=== PATIENT | male | born 1935 | race Caucasian/White ===

== ENCOUNTER 2019-01-29 14:01 | Observation (INO) | payer MEDICARE, OTHER ==
[~2019-01-29] VITALS: Ht 170.2 cm; Wt 66.0 kg
[~2019-01-29 14:01] MED LIST: ASPI81TA94
[2019-01-29] MEDS ORDERED: aspirin 81mg tab.chew PO ONE (14:10)
[2019-01-29] MEDS: nitroGLYCERIN 0.4mg SUBLingual tab SL PRN ×2 (14:36→14:43)
[2019-01-29 14:37] LABS: BASOPHILS % (AUTO) 0.1 % (0-1); EOSINOPHILS % (AUTO) 0 % (0-6); HEMATOCRIT 41.6 % (42.0-52.0); HEMOGLOBIN 14.5 g/dl (14.0-17.9); LYMPHOCYTES # (AUTO) 0.5 X10'3 (1.1-4.8); LYMPHOCYTES % (AUTO) 4.6 % (21-51); MEAN CORPUSCULAR HEMOGLOBIN 33.5 PG (27.0-31.0); MEAN CORPUSCULAR HGB CONC 34.9 g/dL (33.0-36.5); MEAN CORPUSCULAR VOLUME 96.1 FL (78-98); MEAN PLATELET VOLUME 7.4 FL (7.4-10.4); MONOCYTES # (AUTO) 0.5 X10'3 (0-0.9); MONOCYTES % (AUTO) 4.6 % (2-12); NEUTROPHILS # (AUTO) 8.9 X10'3 (1.8-7.7); NEUTROPHILS % (AUTO) 90.7 % (42-75); PLATELET COUNT 162 X10'3 (140-440); RED BLOOD COUNT 4.33 X10'6 (4.70-6.10); RED CELL DISTRIBUTION WIDTH 13.1 % (11.5-14.5); WHITE BLOOD COUNT 9.8 X10'3 (4.5-11.0)
--- NOTE | 2019-01-29 14:38 | NUR ---
C/P 8\10, B/P 171/103 FIRST NITRO
--- NOTE | 2019-01-29 14:41 | NUR ---
C/P 11/04
--- NOTE | 2019-01-29 14:42 | NUR ---
B/P 150/90 CP 5/10 SECOND NITRO ADM
[2019-01-29 14:46] LABS: ALANINE AMINOTRANSFERASE 27 U/L (12-78); ALKALINE PHOSPHATASE 117 IU/L (46-116); ANION GAP 11 (8-16); ASPARTATE AMINO TRANSFERASE 18 U/L (10-37); BILIRUBIN,TOTAL 1.4 MG/DL (0.1-1.0); BLOOD UREA NITROGEN 20 MG/DL (7-18); BUN/CREATININE RATIO 20.4 (5.4-32.0); CHLORIDE 106 MMOL/L (99-107); CREATININE 0.98 MG/DL (0.60-1.10); GLUCOSE 124 MG/DL (70-104); POTASSIUM 3.6 MMOL/L (3.5-5.1); SODIUM 143 MMOL/L (135-145); TOTAL CARBON DIOXIDE 26.4 MMOL/L (24-32); TOTAL PROTEIN 8.2 G/DL (6.4-8.2); eGFR 73 ML/MIN
--- NOTE | 2019-01-29 14:47 | NUR ---
PAIN 11/04 B/P 102/72 PULSE4 106 Addendum: 01/29/19 at 1448 by GUI MD MONTES NON
[2019-01-29] MEDS ORDERED: ondansetron/PF 4mg/2ml inj IV ONE (14:50)
[2019-01-29] MEDS ORDERED: fentaNYL/PF 50MCG/1 ML 2ML syringe IV ONE (14:50)
[2019-01-29 14:53] LABS: MAGNESIUM 1.9 MG/DL (1.5-2.4)
--- NOTE | 2019-01-29 14:58 | NUR ---
PAIN 2/10-CP B/P 142/90 PULSEN 94
[2019-01-29] MEDS ORDERED: regadenoson 0.4mg/5ml syringe IV PRN (15:05)
[2019-01-29] MEDS ORDERED: potassium CL 10mEq/100ml bag 100 ML IV PRN ×2 (15:05)
[2019-01-29] MEDS ORDERED: morphine 2 MG/ML inj. syringe IV PRN ×2 (15:05)
[2019-01-29] MEDS ORDERED: HYDROcodone/acetaminophen 5mg/325mg tablet PO PRN (15:05)
[2019-01-29] MEDS ORDERED: potassium Cl 20 mEq SR tablet PO PRN ×2 (15:05)
[2019-01-29] MEDS ORDERED: nitroGLYCERIN 0.4mg SUBLingual tab SL PRN (15:05)
[2019-01-29] MEDS ORDERED: ondansetron/PF 4mg/2ml inj IV PRN (15:05)
[2019-01-29] MEDS ORDERED: magnesium hydroxide 30ml (MOM) UD suspension PO PRN (15:05)
[2019-01-29] MEDS ORDERED: aminophylline 250mg/10ml inj. IV PRN (15:05)
[2019-01-29] MEDS ORDERED: magnesium Cl slow-release 64mg tablet PO PRN (15:05)
[2019-01-29] MEDS ORDERED: HYDROcodone/acetaminophen 10/325mg tab PO PRN (15:05)
[2019-01-29] MEDS ORDERED: acetaminophen 325mg tablet PO PRN ×2 (15:05)
[2019-01-29] MEDS ORDERED: magnesium 4gm in 100ml NS 100 ML IV PRN (15:05)
[2019-01-29] MEDS ORDERED: mag hydrox/Alum hydrox/simeth 30ml oral suspension PO PRN (15:05)
[2019-01-29] MEDS ORDERED: metoprolol tartrate 1mg/ml inj IV PRN (15:05)
[2019-01-29] MEDS ORDERED: magnesium 2GM in 50ml NS 50 ML IV PRN (15:05)
[2019-01-29] MEDS ORDERED: MELO15TA13 PO (15:21)
[2019-01-29] MEDS ORDERED: ACET-3068 PO (15:21)
[2019-01-29] MEDS ORDERED: FLO0.4C PO (15:21)
[2019-01-29] MEDS ORDERED: MELO-102 PO (15:21)
[2019-01-29] MEDS ORDERED: LYR75C PO (15:21)
--- NOTE | 2019-01-29 15:33 | NUR ---
Patient in room MED 311. I have received report from Graciela Be RN and had the opportunity to ask questions and assume patient care.
--- NOTE | 2019-01-29 15:37 | NUR ---
Pt arrived to unit via gurney. child monitor in place. all known belongings with pt. pt daughter with the pt. pt vss.
[2019-01-29] MEDS: normal saline 1000ml 1,000 ML IV SCH (16:07)
[2019-01-29 18:00] VITALS: BP 150/70
--- NOTE | 2019-01-29 18:00 | NUR ---
Patient in room MED 311. I have received report from FORTINO Lujan and had the opportunity to ask questions and assume patient care.
--- NOTE | 2019-01-29 18:00 | NUR ---
Patient in room MED 311. I have received report from Le RN and had the opportunity to ask questions and assume patient care.
--- NOTE | 2019-01-29 18:30 | NUR ---
Patient in room MED 311. I have received report from Le RN and had the opportunity to ask questions and assume patient care.
[2019-01-29] MEDS ORDERED: MELOXICAM 15 MG PO PRN (19:55)
[2019-01-29] MEDS ORDERED: temazepam 15mg capsule PO PRN (21:00)
[2019-01-29] MEDS: metoprolol tartrate 12.5mg (1/2 tablet) PO SCH (21:05)
[2019-01-29 22:00] VITALS: BP 140/65
[2019-01-30] VITALS (9 sets, daily range): BP systolic 116–160; BP diastolic 47–77
[2019-01-30 03:03] LABS: ALBUMIN 3.4 G/DL (3.4-5.0); ANION GAP 9 (8-16); BLOOD UREA NITROGEN 19 MG/DL (7-18); BUN/CREATININE RATIO 19.4 (5.4-32.0); CALCIUM 8.6 MG/DL (8.5-10.1); CHLORIDE 106 MMOL/L (99-107); CHOLESTEROL 99 MG/DL (0-200); CREATININE 0.98 MG/DL (0.60-1.10); GLUCOSE 107 MG/DL (70-104); HDL CHOLESTEROL 50 MG/DL (35-60); LDL CHOLESTEROL 52 MG/DL (50-100); MAGNESIUM 1.8 MG/DL (1.5-2.4); POTASSIUM 3.9 MMOL/L (3.5-5.1); SODIUM 141 MMOL/L (135-145); TOTAL CARBON DIOXIDE 26.5 MMOL/L (24-32); TRIGLYCERIDES 27 MG/DL (20-135); eGFR 73 ML/MIN
[2019-01-30 04:43] LABS: HEMATOCRIT 39.1 % (42.0-52.0); HEMOGLOBIN 13.4 g/dl (14.0-17.9); MEAN CORPUSCULAR HEMOGLOBIN 33.1 PG (27.0-31.0); MEAN CORPUSCULAR HGB CONC 34.4 g/dL (33.0-36.5); MEAN CORPUSCULAR VOLUME 96.4 FL (78-98); MEAN PLATELET VOLUME 7.4 FL (7.4-10.4); PLATELET COUNT 158 X10'3 (140-440); RED BLOOD COUNT 4.05 X10'6 (4.70-6.10); RED CELL DISTRIBUTION WIDTH 12.9 % (11.5-14.5)
[2019-01-30] MEDS: nitroGLYCERIN 0.4mg SUBLingual tab SL PRN ×2 (05:15→05:16)
--- NOTE | 2019-01-30 05:17 | NUR ---
Patient c/o chest pain that began as Right sided lower abdominal pain. He reports his pain being 4/10. He reports that his pain started like this yesterday and increased to sternal pain. Patient reports that he is now at a 3/10 but he looks to be at a higher level of pain. He was given 1 Nitroglycerin tablet 0.4 mg sublingual at 0450 and a second tab at 0455. Patient reports some relief but is also nauseated and dry-heaving. He was given Zofran 4 mg IVP. He is reporting some relief. I will continue to monitor patient for duration of shift.
--- NOTE | 2019-01-30 05:22 | NUR ---
Patient reports that his chest pain is almost all the way gone with pain level "almost gone". He states that he is still having some nausea but is almost gone.
[2019-01-30] MEDS: normal saline 1000ml 1,000 ML IV SCH (05:23)
--- NOTE | 2019-01-30 06:36 | NUR ---
Patient in room MED 311. I have received report from Rosalinda and had the opportunity to ask questions and assume patient care.
[2019-01-30] MEDS: metoprolol tartrate 12.5mg (1/2 tablet) PO SCH (07:34)
[2019-01-30] MEDS ORDERED: aspirin 81mg tablet.DR PO SCH (08:00)
[2019-01-30] MEDS ORDERED: pregabalin 75mg capsule PO SCH (08:00)
[2019-01-30] MEDS ORDERED: K and/or MAG REPLACEMENT MC SCH (08:00)
[2019-01-30] MEDS ORDERED: tamsulosin 0.4mg capsule PO SCH (08:00)
[2019-01-30] MEDS ORDERED: enoxaparin 40mg/0.4ml syringe SQ SCH (08:00)
--- NOTE | 2019-01-30 12:23 | NUR ---
PAGER ID: [phone] MESSAGE: [id number]. Pt's done with Cuciniale and results are up. Lei FREITAS [id number]
[2019-01-30] MEDS ORDERED: ASPI-611 PO (13:06)
[2019-01-30] MEDS ORDERED: METO25TA6 PO ×2 (13:06→22:44)
--- NOTE | 2019-01-30 15:30 | NUR ---
Orienteer documentation: I have reviewed and agree with all interventions, assessments performed and documented by Arlin FREITAS.
[2019-01-30] MEDS ORDERED: ASPI-1265 PO (22:44)
== END 2019-01-30 15:27 | disposition home or self-care (01) ==
LOC: ER 14:02 → MED 3N 15:41 → CMPBEDREQ 01-30 15:16
PROVIDERS: ADMIT Family Medicine; ATTEND Family Medicine
DX: I25.119 Atherosclerotic heart disease of native coronary artery with unspecified angina pectoris (principal); G31.84 Mild cognitive impairment of uncertain or unknown etiology; N40.0 Benign prostatic hyperplasia without lower urinary tract symptoms; G35 Multiple sclerosis; Z88.0 Allergy status to penicillin; Z79.82 Long term (current) use of aspirin; I10 Essential (primary) hypertension
CPT/HCPCS: 36415; 71045; 78452; 80048; 80053; 80061; 83735; 83880; 84484; 85025; 85027; 93005; 93017; 93306; 96361; 96372; 96374; 96375; 96376; 99284; A9500; G0378; J2405; J2785; J3010; J7030; J1650

== ENCOUNTER 2019-01-30 19:50 | Inpatient (IN) | payer MEDICARE, OTHER ==
[~2019-01-30] VITALS: Ht 170.2 cm; Wt 65.0 kg
[~2019-01-30 19:50] MED LIST changes: +ACET-3068 PO; +ASPI-611 PO; +FLO0.4C PO; +LYR75C PO; +MELO-102 PO; +MELO15TA13 PO; +METO25TA6 PO
[2019-01-30 20:20] LABS: BASOPHILS % (AUTO) 0.1 % (0-1); EOSINOPHILS % (AUTO) 0 % (0-6); HEMATOCRIT 39.1 % (42.0-52.0); HEMOGLOBIN 13.5 g/dl (14.0-17.9); LYMPHOCYTES # (AUTO) 0.3 X10'3 (1.1-4.8); LYMPHOCYTES % (AUTO) 3.9 % (21-51); MEAN CORPUSCULAR HEMOGLOBIN 33.3 PG (27.0-31.0); MEAN CORPUSCULAR HGB CONC 34.6 g/dL (33.0-36.5); MEAN CORPUSCULAR VOLUME 96.2 FL (78-98); MEAN PLATELET VOLUME 7.8 FL (7.4-10.4); MONOCYTES # (AUTO) 0.7 X10'3 (0-0.9); MONOCYTES % (AUTO) 7.7 % (2-12); NEUTROPHILS # (AUTO) 7.7 X10'3 (1.8-7.7); NEUTROPHILS % (AUTO) 88.3 % (42-75); PLATELET COUNT 143 X10'3 (140-440); RED BLOOD COUNT 4.06 X10'6 (4.70-6.10); RED CELL DISTRIBUTION WIDTH 12.9 % (11.5-14.5); WHITE BLOOD COUNT 8.7 X10'3 (4.5-11.0)
[2019-01-30 20:31] LABS: ALANINE AMINOTRANSFERASE 216 U/L (12-78); ALBUMIN 3.2 G/DL (3.4-5.0); ALKALINE PHOSPHATASE 246 IU/L (46-116); ANION GAP 8 (8-16); ASPARTATE AMINO TRANSFERASE 240 U/L (10-37); BLOOD UREA NITROGEN 21 MG/DL (7-18); BUN/CREATININE RATIO 20.8 (5.4-32.0); CALCIUM 8.4 MG/DL (8.5-10.1); CHLORIDE 103 MMOL/L (99-107); CREATININE 1.01 MG/DL (0.60-1.10); GLUCOSE 139 MG/DL (70-104); POTASSIUM 3.5 MMOL/L (3.5-5.1); SODIUM 136 MMOL/L (135-145); TOTAL CARBON DIOXIDE 24.8 MMOL/L (24-32); eGFR 71 ML/MIN
[2019-01-30 20:49] LABS: PARTIAL THROMBOPLASTIN TIME 37 SECONDS (22-32)
[2019-01-30 21:06] LABS: ALBUMIN/GLOBULIN RATIO 0.7 (1.1-1.5); AMYLASE 27 U/L (25-115); LIPASE 56 U/L (73-393); TOTAL PROTEIN 7.8 G/DL (6.4-8.2)
[2019-01-30] MEDS ORDERED: fentaNYL/PF 50MCG/1 ML 2ML syringe IV ONE (21:20)
[2019-01-30] MEDS ORDERED: CefTRIAXone/D5W-Rocephin 1gm 50 ML IV ONE (21:20)
[2019-01-30] MEDS ORDERED: ondansetron/PF 4mg/2ml inj IV ONE (21:20)
--- NOTE | 2019-01-30 21:31 | NUR ---
DAUGHTER AT BEDSIDE - PT HARD OF HEARING. HE IS REQUESTING SOMETHING FOR PAIN. ORDERS HAVE BEEN ENTERED. PT WILL BE MEDICATED SAMUEL.
[2019-01-30] MEDS ORDERED: METO25TA6 PO (22:44)
[2019-01-30] MEDS ORDERED: ASPI-1265 PO (22:44)
[2019-01-30] MEDS ORDERED: iohexol 300mg/ml 100ml inj. ONE (22:45)
[2019-01-30 23:00] VITALS: BP 151/68
[2019-01-30] MEDS ORDERED: magnesium Cl slow-release 64mg tablet PO PRN (23:00)
[2019-01-30] MEDS ORDERED: potassium CL 10mEq/100ml bag 100 ML IV PRN ×2 (23:00)
[2019-01-30] MEDS ORDERED: potassium Cl 20 mEq SR tablet PO PRN ×2 (23:00)
[2019-01-30] MEDS ORDERED: magnesium 4gm in 100ml NS 100 ML IV PRN (23:00)
[2019-01-30] MEDS ORDERED: magnesium 2GM in 50ml NS 50 ML IV PRN (23:00)
[2019-01-30] MEDS ORDERED: ondansetron/PF 4mg/2ml inj IV PRN (23:00)
--- NOTE | 2019-01-30 23:09 | NUR ---
PT TO CT
--- NOTE | 2019-01-30 23:13 | NUR ---
DELAY IN GETTING PT UPSTAIRS IT WAS REQUESTED THAT PT GO TO CT BEFORE THE FLOOR. PT IS NOW BACK FROM CT AND REPORT IS BEING CALLED.
[2019-01-30 23:26] LABS: ACETAMINOPHEN < 2.0 UG/ML (10-30)
--- NOTE | 2019-01-30 23:29 | NUR ---
Patient in room [facility]. I have received report from FORTINO MALONE [facility] and had the opportunity to ask questions and assume patient care.
[2019-01-31] VITALS (17 sets, daily range): BP systolic 121–175; BP diastolic 63–76
[2019-01-31] MEDS: HYDROmorphone inj. 0.5 MG/0.5 ML DISP.SYRIN IV PRN ×5 (01:07→23:44)
[2019-01-31 06:24] LABS: BASOPHILS % (AUTO) 0.1 % (0-1); EOSINOPHILS % (AUTO) 0 % (0-6); HEMATOCRIT 45.8 % (42.0-52.0); HEMOGLOBIN 15.7 g/dl (14.0-17.9); LYMPHOCYTES # (AUTO) 1.3 X10'3 (1.1-4.8); LYMPHOCYTES % (AUTO) 11.5 % (21-51); MEAN CORPUSCULAR HEMOGLOBIN 32.9 PG (27.0-31.0); MEAN CORPUSCULAR HGB CONC 34.2 g/dL (33.0-36.5); MEAN CORPUSCULAR VOLUME 96.1 FL (78-98); MEAN PLATELET VOLUME 8.2 FL (7.4-10.4); MONOCYTES # (AUTO) 0.7 X10'3 (0-0.9); MONOCYTES % (AUTO) 5.7 % (2-12); NEUTROPHILS # (AUTO) 9.5 X10'3 (1.8-7.7); NEUTROPHILS % (AUTO) 82.7 % (42-75); PLATELET COUNT 161 X10'3 (140-440); RED BLOOD COUNT 4.76 X10'6 (4.70-6.10); RED CELL DISTRIBUTION WIDTH 12.9 % (11.5-14.5); WHITE BLOOD COUNT 11.5 X10'3 (4.5-11.0)
--- NOTE | 2019-01-31 06:38 | NUR ---
Problems reprioritized. Patient report given, questions answered & plan of care reviewed with FORTINO Santo. Addendum: 01/31/19 at 0638 by Iman Mcclendon RN Amended: Links added.
[2019-01-31 06:49] LABS: ALANINE AMINOTRANSFERASE 201 U/L (12-78); ALBUMIN 3.5 G/DL (3.4-5.0); ALBUMIN/GLOBULIN RATIO 0.8 (1.1-1.5); ALKALINE PHOSPHATASE 278 IU/L (46-116); ANION GAP 14 (8-16); ASPARTATE AMINO TRANSFERASE 157 U/L (10-37); BILIRUBIN,TOTAL 8.6 MG/DL (0.1-1.0); BLOOD UREA NITROGEN 20 MG/DL (7-18); BUN/CREATININE RATIO 17.5 (5.4-32.0); CALCIUM 9.2 MG/DL (8.5-10.1); CHLORIDE 101 MMOL/L (99-107); CREATININE 1.14 MG/DL (0.60-1.10); GLUCOSE 106 MG/DL (70-104); POTASSIUM 3.5 MMOL/L (3.5-5.1); SODIUM 139 MMOL/L (135-145); TOTAL PROTEIN 8.1 G/DL (6.4-8.2); eGFR 62 ML/MIN
--- NOTE | 2019-01-31 07:00 | NUR ---
Patient in room [facility]. I have received report from Ashley Ibarra RN and had the opportunity to ask questions and assume patient care.
[2019-01-31] MEDS: ESOMEPRAZOLE 40 MG VIAL IV SCH (07:52)
[2019-01-31] MEDS: K and/or MAG REPLACEMENT MC SCH (08:00)
[2019-01-31] MEDS ORDERED: pantoprazole 40 MG vial IV SCH (08:00)
[2019-01-31] MEDS ORDERED: levoFLOXACIN-Levaquin 500mg/D5 100 ML IV SCH (08:00)
[2019-01-31] MEDS: metroNIDAZOLE-Flagyl 500mg/NS 100 ML IV SCH ×3 (08:38→23:42)
--- NOTE | 2019-01-31 11:02 | NUR ---
patient seen by Dr Valdez, maintenance fluids ordered, and Consult with DR Tyrel BROOKS. family present.
[2019-01-31] MEDS: normal saline 1000ml 1,000 ML IV SCH ×2 (11:07→23:42)
[2019-01-31] MEDS ORDERED: fentaNYL/PF 50MCG/1 ML 2ML syringe ONE (14:32)
[2019-01-31] MEDS ORDERED: glucagon, human recombinant 1mg kit ONE (14:33)
[2019-01-31] MEDS ORDERED: diphenhydrAMINE 50 mg/ml inj ONE (14:33)
[2019-01-31] MEDS ORDERED: LIDOcaine Viscous 15ml cup ONE (14:33)
[2019-01-31] MEDS ORDERED: levoFLOXACIN-Levaquin 500mg/D5 100 ML IV ONE (14:33)
[2019-01-31] MEDS ORDERED: MIDAZolam 5mg/5ml vial ONE (14:33)
[2019-01-31] MEDS ORDERED: iohexol 300 MG/1 ML 50ml polymer ONE (14:33)
--- NOTE | 2019-01-31 18:04 | NUR ---
patient went for ERCP at 1500hrs. still down in GI lab at 1800hrs. family aware. Report given to Ashley Ibarra
--- NOTE | 2019-01-31 18:38 | NUR ---
Patient in room [facility]. I have received report from FORTINO Santo and had the opportunity to ask questions and assume patient care. Addendum: 01/31/19 at 1838 by Iman Mcclendon RN Amended: Links added.
--- NOTE | 2019-01-31 18:55 | NUR ---
patient returned from ERCP and received report from FORTINO Perales and pt in stable condition and no acute distress.
[2019-01-31] MEDS: lactobacillus rhamnosus 10,000 MMU CELLS/CAPSULE PO SCH (19:55)
[2019-02-01] VITALS (19 sets, daily range): BP systolic 94–188; BP diastolic 58–97
[2019-02-01 05:17] LABS: BASOPHILS % (AUTO) 0.2 % (0-1); EOSINOPHILS # (AUTO) 0.1 X10'3 (0-0.9); EOSINOPHILS % (AUTO) 1.7 % (0-6); HEMATOCRIT 34.2 % (42.0-52.0); HEMOGLOBIN 11.9 g/dl (14.0-17.9); LYMPHOCYTES # (AUTO) 0.6 X10'3 (1.1-4.8); LYMPHOCYTES % (AUTO) 12.5 % (21-51); MEAN CORPUSCULAR HEMOGLOBIN 33.9 PG (27.0-31.0); MEAN CORPUSCULAR HGB CONC 34.9 g/dL (33.0-36.5); MEAN CORPUSCULAR VOLUME 97.1 FL (78-98); MEAN PLATELET VOLUME 7.9 FL (7.4-10.4); MONOCYTES # (AUTO) 0.4 X10'3 (0-0.9); MONOCYTES % (AUTO) 8.4 % (2-12); NEUTROPHILS # (AUTO) 3.8 X10'3 (1.8-7.7); NEUTROPHILS % (AUTO) 77.2 % (42-75); PLATELET COUNT 128 X10'3 (140-440); RED BLOOD COUNT 3.52 X10'6 (4.70-6.10); RED CELL DISTRIBUTION WIDTH 13.2 % (11.5-14.5)
[2019-02-01 05:29] LABS: ALBUMIN 2.4 G/DL (3.4-5.0); ANION GAP 6 (8-16); BLOOD UREA NITROGEN 24 MG/DL (7-18); BUN/CREATININE RATIO 23.1 (5.4-32.0); CHLORIDE 108 MMOL/L (99-107); CREATININE 1.04 MG/DL (0.60-1.10); GLUCOSE 96 MG/DL (70-104); MAGNESIUM 1.9 MG/DL (1.5-2.4); POTASSIUM 3.5 MMOL/L (3.5-5.1); SODIUM 139 MMOL/L (135-145); TOTAL CARBON DIOXIDE 25.2 MMOL/L (24-32); eGFR 69 ML/MIN
--- NOTE | 2019-02-01 06:31 | NUR ---
Problems reprioritized. Patient report given, questions answered & plan of care reviewed with FORTINO Santo. Addendum: 02/01/19 at 0632 by Iman Mcclendon RN Amended: Links added.
--- NOTE | 2019-02-01 07:25 | NUR ---
Patient in room [facility]. I have received report from Ashley Burton RN and had the opportunity to ask questions and assume patient care.
[2019-02-01] MEDS: K and/or MAG REPLACEMENT MC SCH (08:00)
[2019-02-01] MEDS: aspirin 81mg tab.chew PO SCH (08:00)
[2019-02-01] MEDS: ESOMEPRAZOLE 40 MG VIAL IV SCH (08:11)
[2019-02-01] MEDS: lactobacillus rhamnosus 10,000 MMU CELLS/CAPSULE PO SCH ×2 (08:11→21:17)
[2019-02-01] MEDS: levoFLOXACIN-Levaquin 250mg/D5 50 ML IV SCH (08:11)
[2019-02-01] MEDS: tamsulosin 0.4mg capsule PO SCH (08:11)
[2019-02-01] MEDS: pregabalin 75mg capsule PO SCH (08:11)
[2019-02-01] MEDS: HYDROmorphone inj. 0.5 MG/0.5 ML DISP.SYRIN IV PRN ×4 (08:15→23:57)
[2019-02-01] MEDS: metroNIDAZOLE-Flagyl 500mg/NS 100 ML IV SCH ×3 (09:15→23:57)
[2019-02-01 09:24] LABS: ALANINE AMINOTRANSFERASE 104 U/L (12-78); ALBUMIN 2.5 G/DL (3.4-5.0); ALKALINE PHOSPHATASE 213 IU/L (46-116); ANION GAP 8 (8-16); ASPARTATE AMINO TRANSFERASE 51 U/L (10-37); BILIRUBIN,TOTAL 5.8 MG/DL (0.1-1.0); BLOOD UREA NITROGEN 21 MG/DL (7-18); BUN/CREATININE RATIO 22.6 (5.4-32.0); CALCIUM 8.3 MG/DL (8.5-10.1); CHLORIDE 107 MMOL/L (99-107); CREATININE 0.93 MG/DL (0.60-1.10); GLUCOSE 95 MG/DL (70-104); POTASSIUM 3.5 MMOL/L (3.5-5.1); SODIUM 140 MMOL/L (135-145); TOTAL CARBON DIOXIDE 25.1 MMOL/L (24-32); eGFR 78 ML/MIN
[2019-02-01 09:36] LABS: ALBUMIN/GLOBULIN RATIO 0.7 (1.1-1.5); TOTAL PROTEIN 6.2 G/DL (6.4-8.2)
[2019-02-01] MEDS: normal saline 1000ml 1,000 ML IV SCH ×2 (12:00→19:15)
[2019-02-01] MEDS ORDERED: ringers solution, lacted 1,000 ML IV SCH (12:49)
[2019-02-01] MEDS ORDERED: hydrALAZINE 20mg/ml inj. IV PRN (12:50)
[2019-02-01] MEDS ORDERED: fentaNYL/PF 50MCG/1 ML 2ML syringe IV PRN ×2 (12:50)
[2019-02-01] MEDS ORDERED: morphine 4 MG/ML inj SYRINge IV PRN ×2 (12:50)
[2019-02-01] MEDS ORDERED: ondansetron/PF 4mg/2ml inj IV PRN (12:50)
[2019-02-01] MEDS ORDERED: BUPIVAcaine/PF 2.5 mg/ml (0.25%) 30ml vial ONE (16:12)
[2019-02-01] MEDS ORDERED: ceFAZolin 1000mg inj ONE (16:12)
[2019-02-01] MEDS ORDERED: fentaNYL/PF 50MCG/1 ML 2ML syringe ONE (16:31)
[2019-02-01] MEDS ORDERED: midazolam 2 mg/2 ml injection ONE (16:31)
[2019-02-01] MEDS ORDERED: propofol inj 20 ML IV ONE (16:32)
[2019-02-01] MEDS ORDERED: rocuronium 10mg/ml inj IV ONE (16:32)
[2019-02-01] MEDS ORDERED: LIDOcaine 2% (20mg/ml) 5ml vial ONE (16:32)
[2019-02-01] MEDS ORDERED: ondansetron/PF 4mg/2ml inj ONE (16:32)
[2019-02-01] MEDS ORDERED: glycopyrrolate 0.2mg/ml inj ONE (16:40)
[2019-02-01] MEDS ORDERED: neostigmine methylsulfate 1 MG/ML 10ml vial ONE (16:40)
[2019-02-01] MEDS ORDERED: metoprolol tartrate 1mg/ml inj IV ONE (16:40)
[2019-02-01] MEDS ORDERED: sevoflurane 250ml liquid IH ONE (16:40)
[2019-02-01] MEDS ORDERED: dexamethasone sod phosphate 10mg/ml inj ONE (16:40)
--- NOTE | 2019-02-01 17:40 | NUR ---
Received from OR via , accompanied by DR. SYLVESTER, Anesthesiologist and report given by Anesthesiolgist. S/P JOAQUIN JONAS PER DR. CELAYA W/ GENERAL ANESTHESIA. PT. SOMULENT. RESPS. EVEN & UNLAOBED. ABD. SOFT. ABD. BANDAIDS DRY & INTACT. RT. AC IV PATENT. PT. VERY HARD OF HEARING.
[2019-02-01] MEDS: labetalol 20mg/4ml (5mg/ml) syringe IV PRN ×2 (17:50→18:11)
--- NOTE | 2019-02-01 18:07 | NUR ---
patient still in surgery at time of report. Brief summary given to Ashley Ibarra RN
--- NOTE | 2019-02-01 18:25 | NUR ---
Patient in room [facility]. I have received report from FORTINO Santo and had the opportunity to ask questions and assume patient care. Pt still in surgery. Addendum: 02/01/19 at 1826 by Iman Mcclendon RN Amended: Links added.
--- NOTE | 2019-02-01 18:30 | NUR ---
PT. VOIDED VIA URINAL. MEDICATED FOR PAIN. REASSURED.
--- NOTE | 2019-02-01 18:45 | NUR ---
Report called to receiving nurse, FORTINO STORM . Transferred via BED. Belongings IN PT. ROOM. PT. AWAKES EASILY TO NAME. APPROP. RESPS. EVEN & UNLABORED. ABD. BANDAIDS DRY & INTACT. ABD. SOFT. RT. AC IV PATENT. STATES PAIN "OK". REASSURED. . Special Issues communicated to receiving nurse.
--- NOTE | 2019-02-01 19:05 | NUR ---
RECEIVED REPORT FROM KIKA SUNG PT JUST ARRIVED FROM PACU, AWAKE AND IN PAIN.
--- NOTE | 2019-02-01 21:24 | NUR ---
patient just now finish amie kay Addendum: 02/01/19 at 2124 by Iman Mcclendon RN Amended: Links added.
[2019-02-02] VITALS: BP 135/70
[2019-02-02 04:00] VITALS: BP 151/77
[2019-02-02] MEDS: HYDROmorphone inj. 0.5 MG/0.5 ML DISP.SYRIN IV PRN (04:39)
[2019-02-02 06:22] LABS: ALBUMIN 2.8 G/DL (3.4-5.0); ANION GAP 11 (8-16); BLOOD UREA NITROGEN 16 MG/DL (7-18); BUN/CREATININE RATIO 15.5 (5.4-32.0); CALCIUM 8.5 MG/DL (8.5-10.1); CHLORIDE 106 MMOL/L (99-107); CREATININE 1.03 MG/DL (0.60-1.10); GLUCOSE 158 MG/DL (70-104); MAGNESIUM 1.9 MG/DL (1.5-2.4); POTASSIUM 3.7 MMOL/L (3.5-5.1); SODIUM 139 MMOL/L (135-145); TOTAL CARBON DIOXIDE 21.7 MMOL/L (24-32); eGFR 69 ML/MIN
--- NOTE | 2019-02-02 06:27 | NUR ---
Problems reprioritized. Patient report given, questions answered & plan of care reviewed with FORTINO Segundo. Addendum: 02/02/19 at 0628 by Iman Mcclendon RN Amended: Links added.
[2019-02-02 06:34] LABS: BASOPHILS % (AUTO) 0.1 % (0-1); EOSINOPHILS % (AUTO) 0 % (0-6); HEMATOCRIT 37.1 % (42.0-52.0); HEMOGLOBIN 12.9 g/dl (14.0-17.9); LYMPHOCYTES # (AUTO) 0.3 X10'3 (1.1-4.8); LYMPHOCYTES % (AUTO) 5.3 % (21-51); MEAN CORPUSCULAR HEMOGLOBIN 33.4 PG (27.0-31.0); MEAN CORPUSCULAR HGB CONC 34.8 g/dL (33.0-36.5); MEAN CORPUSCULAR VOLUME 95.8 FL (78-98); MEAN PLATELET VOLUME 8.3 FL (7.4-10.4); MONOCYTES # (AUTO) 0.2 X10'3 (0-0.9); NEUTROPHILS # (AUTO) 5.3 X10'3 (1.8-7.7); NEUTROPHILS % (AUTO) 90.6 % (42-75); PLATELET COUNT 160 X10'3 (140-440); RED BLOOD COUNT 3.87 X10'6 (4.70-6.10); RED CELL DISTRIBUTION WIDTH 13.3 % (11.5-14.5); WHITE BLOOD COUNT 5.8 X10'3 (4.5-11.0)
[2019-02-02] MEDS: K and/or MAG REPLACEMENT MC SCH (08:00)
[2019-02-02] MEDS: tamsulosin 0.4mg capsule PO SCH (08:05)
[2019-02-02] MEDS: pregabalin 75mg capsule PO SCH (08:05)
[2019-02-02] MEDS: metroNIDAZOLE-Flagyl 500mg/NS 100 ML IV SCH (08:05)
[2019-02-02] MEDS: lactobacillus rhamnosus 10,000 MMU CELLS/CAPSULE PO SCH (08:05)
[2019-02-02] MEDS: aspirin 81mg tab.chew PO SCH (08:05)
[2019-02-02] MEDS: ESOMEPRAZOLE 40 MG VIAL IV SCH (08:11)
[2019-02-02] MEDS: levoFLOXACIN-Levaquin 250mg/D5 50 ML IV SCH (09:17)
[2019-02-02] MEDS ORDERED: LEVO500T2 PO (10:14)
[2019-02-02] MEDS ORDERED: METR250T PO (10:14)
[2019-02-02] MEDS ORDERED: HYDR-4383 PO (10:14)
[2019-02-02] MEDS ORDERED: DOCU-148 PO (10:14)
[2019-02-02 11:00] VITALS: BP 161/87
--- NOTE | 2019-02-02 13:49 | NUR ---
Pt discharged per Dr Ames via Dr Parr. Pt stable and appropriate for discharge. No current issues, minimal pain. Walks ad sadiq with fww, which he has at home as well. Meds delivered via [facility] bedside. IV taken out and tele returned to tele box. PT will f/u with Dr Ames and make appt. Family involved in care.
== END 2019-02-02 13:53 | disposition home or self-care (01) | DRG 418 ==
LOC: ER 19:50 → SUR 3N 22:19 → CMPBEDREQ 22:36
PROVIDERS: ADMIT Internal Medicine; ATTEND Internal Medicine
PROC: BW211ZZ Computerized Tomography (CT Scan) of Abdomen and Pelvis using Low Osmolar Contrast (ICD-10-PCS; 2019-01-30)
PROC: 0FC98ZZ Extirpation of Matter from Common Bile Duct, Via Natural or Artificial Opening Endoscopic (ICD-10-PCS; 2019-01-31)
PROC: BF101ZZ Fluoroscopy of Bile Ducts using Low Osmolar Contrast (ICD-10-PCS; 2019-01-31)
PROC: 0FT44ZZ Resection of Gallbladder, Percutaneous Endoscopic Approach (ICD-10-PCS; principal; 2019-02-01 16:40)
DX: K80.66 Calculus of gallbladder and bile duct with acute and chronic cholecystitis without obstruction (principal); C90.00 Multiple myeloma not having achieved remission; G35 Multiple sclerosis; I10 Essential (primary) hypertension; K82.A1 Gangrene of gallbladder in cholecystitis; N40.0 Benign prostatic hyperplasia without lower urinary tract symptoms; Z66 Do not resuscitate; G31.84 Mild cognitive impairment of uncertain or unknown etiology; G62.9 Polyneuropathy, unspecified; R74.0 Nonspecific elevation of levels of transaminase and lactic acid dehydrogenase [LDH]; R74.8 Abnormal levels of other serum enzymes; R79.89 Other specified abnormal findings of blood chemistry; Z79.899 Other long term (current) drug therapy; Z88.0 Allergy status to penicillin; Z89.021 Acquired absence of right finger(s)
CPT/HCPCS: 36415; 43262; 43264; 71045; 74177; 76700; 78452; 80048; 80053; 80061; 80076; 80329; 82150; 82948; 83690; 83735; 83880; 84484; 85025; 85027; 85610; 85730; 87081; 88304; 93005; 93017; 93306; 96365; 96375; 99152; 99153; 99285; A4215; A4618; A4620; A7000; A9500; C1769; G0378; J0690; J0696; J1100; J1170; J1200; J1610; J1956; J2001; J2250; J2270; J2405; J2704; J2710; J3010; J3490; J7030; J7040; J7120; Q9967